=== PATIENT | female | born 1950 | race Caucasian/White ===

== ENCOUNTER 2022-03-05 07:17 | Observation (INO) ==
--- NOTE | 2022-01-25 10:40 | PAT Medication Instructions ---
Medication Instructions Date of Service January 25, 2022 Home Medications albuterol sulfate 90 mcg/actuation aerosol inhaler 2 puff inhalation QID PRN Shortness Of Breath Or Wheezing alendronate 70 mg tablet 70 mg PO UD aspirin 81 mg tablet 81 mg PO QAM atorvastatin 20 mg tablet 20 mg PO QAM fluticasone 500 mcg-salmeterol 50 mcg/dose blistr powdr for inhalation (Advair Diskus) 1 inh inhalation BID PRN Shortness Of Breath Or Wheezing losartan 50 mg tablet 50 mg PO BID magnesium oxide 400 mg (241.3 mg magnesium) tablet 400 mg PO QPM pramipexole 0.125 mg tablet 0.125 mg PO TID Continue as directed alendronate 70 mg tablet 70 mg PO UD ASK your prescriber and surgeon aspirin 81 mg tablet 81 mg PO QAM DO NOT take the morning of surgery losartan 50 mg tablet 50 mg PO BID Take morning of surgery With a small sip of water, OTHERWISE NOTHING TO EAT OR DRINK AFTER MIDNIGHT: albuterol sulfate 90 mcg/actuation aerosol inhaler 2 puff inhalation QID PRN Shortness Of Breath Or Wheezing (use if needed; please bring rescue inhaler with you to hospital day of surgery if possible) atorvastatin 20 mg tablet 20 mg PO QAM fluticasone 500 mcg-salmeterol 50 mcg/dose blistr powdr for inhalation (Advair Diskus) 1 inh inhalation BID PRN Shortness Of Breath Or Wheezing (if needed) pramipexole 0.125 mg tablet 0.125 mg PO TID Take evening before surgery albuterol sulfate 90 mcg/actuation aerosol inhaler 2 puff inhalation QID PRN Shortness Of Breath Or Wheezing (if needed) fluticasone 500 mcg-salmeterol 50 mcg/dose blistr powdr for inhalation (Advair Diskus) 1 inh inhalation BID PRN Shortness Of Breath Or Wheezing (if needed) losartan 50 mg tablet 50 mg PO BID magnesium oxide 400 mg (241.3 mg magnesium) tablet 400 mg PO QPM pramipexole 0.125 mg tablet 0.125 mg PO TID Other Notes If you have any questions please call us at [phone] or [phone] or [phone] or [phone]
--- NOTE | 2022-01-28 10:09 | Anesthesiology Consultation ---
Date of Service January 28, 2022 Assessment & Plan (1) Encounter for pre-operative examination: - COVID screening: Per assessment on 01/28: No known COVID-19 positive contacts or current COVID-19 related symptoms. Travel screen negative. Patient vaccinated. At surgeon discretion if preop Covid testing being done. - Outpatient joint pathway: Per OR booking comments, plan for outpatient joint program. Patient seen at [facility] 01/28. Case reviewed with Dr. Shoemaker. Patient is not an acceptable candidate to proceed as possible outpatient joint pathway. Patient/June at surgeon's office aware- June says they will switch to inpatient pathway. Chart Review Chart Review: Acceptable Risk for Surgery and Patient seen in Pre Admission Testing Teaching & Discussion Pre-Anesthesia Teaching/Discussion Notes: Instructed NPO after midnight before surgery,except medications with 15 cc of water. Medication instructions provided according to the [facility] guidelines. History Surgery Operation Date: 03/05/22 10:20 Proposed Procedures p Right Reverse Total Shoulder Arthroplasty - Charles Garcia DO Height/Weight Height: 5 ft 6 in Weight: 136.3 kg Allergies Allergy/AdvReac Type Severity Reaction Status Date / Time morphine Allergy Intermediate SOB Verified 01/25/22 09:25 Medications Home Medications Medication Instructions Recorded Confirmed Last Taken albuterol sulfate 90 mcg/actuation 2 puff inhalation QID PRN 01/25/22 01/25/22 Unknown aerosol inhaler Shortness Of Breath Or Wheezing alendronate 70 mg tablet 70 mg PO UD 01/25/22 01/25/22 Unknown aspirin 81 mg tablet 81 mg PO QAM 01/25/22 01/25/22 Unknown atorvastatin 20 mg tablet 20 mg PO QAM 01/25/22 01/25/22 Unknown fluticasone 500 mcg-salmeterol 50 1 inh inhalation BID PRN Shortness 01/25/22 01/25/22 Unknown mcg/dose blistr powdr for Of Breath Or Wheezing inhalation (Advair Diskus) losartan 50 mg tablet 50 mg PO BID 01/25/22 01/25/22 Unknown magnesium oxide 400 mg (241.3 mg 400 mg PO QPM 01/25/22 01/25/22 Unknown magnesium) tablet pramipexole 0.125 mg tablet 0.125 mg PO TID 01/25/22 01/25/22 Unknown Past Medical History Medical History Asthma Stable Hx of thyroid nodule s/p excision several years ago Hyperlipidemia Hypertension Morbid obesity Peripheral neuropathy Left foot Restless leg syndrome Sleep apnea CPAP (compliant) Exercise / Class Metabolic Activity III < 4 Walking/Shop/Light housework (uses cane/walker PRN) Past Family History Family History Other No family history of adverse response to anesthesia Past Surgical History Surgical History History of arthroscopy of right shoulder Hx of colonoscopy Hx of fracture of left hip ORIF Hx of skin graft Right thigh Hx of total knee arthroplasty B/L Past Anesthesia History No Hx of Anesthesia Complications and No Family Hx of Anesthesia Complications History of PONV No Hx of PONV and No Hx of Motion Sickness Social History Smoking Status: Never smoker Do You Dip or Chew Tobacco: No Hx Alcohol Use: No Hx Substance Use: No substance use type: does not use Review of Systems Patient denies chest pain, shortness of breath, fever, chills, cough, wheezing, palpitations. Physical Exam Vital Signs VITALS BP 147/81 P 70 TEMP 98.0 SP02 97%RA RESP 20 PHYSICAL Full cervical extension range of motion. Full TMJ range of motion. TMD 3.5 finger breaths Mallampati Score 3 Dentition: full upper, partial lower Lungs: clear throughout to auscultation Cardiac: regular rate and rhythm, no murmurs noted Spine: normal Carotid arteries: negative bruit Extremities: no edema Lab Results Anesthesia Preop Results Results Anesthesia Widget: WBC 6.94 K/ul (4.8-10.8) 01/28/22 Hgb 12.9 g/dl (12.0-16.0) 01/28/22 Hct 39.7 % (34.1-44.9) 01/28/22 Plt 227 K/uL (130-400) 01/28/22 Na 140 mmol/L (136-145) 01/28/22 K 4.7 mmol/L (3.5-5.1) 01/28/22 Cl 106 mmol/L (98-107) 01/28/22 CO2 27 mmol/L (21-32) 01/28/22 BUN 16 mg/dl (6-23) 01/28/22 Creat 0.72 mg/dl (0.6-1.2) 01/28/22 Glucose Level 95 mg/dl (70-99(Fasting)) 01/28/22 PT 10.4 Seconds (9.0-12.0) 01/28/22 PTT 26.5 Seconds (21.0-31.0) 01/28/22 INR 1.0 (0.9-1.1) 01/28/22 Blood Type B Positive 01/28/22 Antibody Screen NEGATIVE 01/28/22 Testing Electrocardiogram Date: 01/28/22 NSR at 60bpm. Normal ECG. Chest X-Ray Date: 01/28/22 FINDINGS: PA and lateral chest radiographs are obtained. No prior studies are available for comparison at the time of dictation. The cardiomediastinal silhouette is top normal for projection noting atherosclerotic calcification of the thoracic aorta. Linear scarring/atelectasis is seen in the left midlung. The lungs and pleural spaces are otherwise clear. There is no pneumothorax. The skeletal structures are osteopenic. The bony thorax appears intact. Advanced arthritic change is seen in the shoulders. Spondylotic change is noted in the spine. IMPRESSION: No active disease in the chest. COVID-19 Risk Screen Screening Information COVID-19 Screen Date: 01/28/22 Exposure 21 Days Family/Household +COVID Last 21 Days: No Exposure 10 Days Any COVID Exposure Last 10 Days: No Symptoms Last 10 Days Experienced COVID Sx Last 10 Days: No + COVID 0-90 Days COVID + in Last 0-90 Days: No
--- NOTE | 2022-03-04 09:32 | History & Physical Report ---
Date of Service March 04, 2022 Assessment & Plan (1) Osteoarthritis of right shoulder: We will proceed with a right reverse shoulder arthroplasty. Postoperatively she will be placed in a sling and kept overnight in the hospital for postoperative medical management. She plans to use energy physical therapy upon discharge. History of Present Illness Chief Complaint: Chronic cuff tear arthropathy of the right shoulder. Primary Care Provider: NO PCP Lisette is a pleasant 71-year-old female who has been dealing with chronic worsening right shoulder pain. This has been going on for years. Over the past year, it has become more debilitating. She has seen an orthopedist down in [place]. She has had multiple injections in her shoulder with minimal rel ief. She does have a history of two rotator cuff repairs done by Dr. Peck about 5 to 7 years ago. Unfortunately, she is really struggling with the shoulder. She is unable to get her hand to her head. She has constant pain. She has trouble sleeping at night. After failing conservative treatment, she has elected proceed with a right reverse shoulder arthroplasty. Allergies Allergy/AdvReac Type Severity Reaction Status Date / Time morphine Allergy Intermediate SOB Verified 01/25/22 09:25 Home Medications Medication Instructions Recorded Confirmed Type albuterol sulfate 90 mcg/actuation 2 puff inhalation QID PRN 01/25/22 01/25/22 History aerosol inhaler Shortness Of Breath Or Wheezing alendronate 70 mg tablet 70 mg PO UD 01/25/22 01/25/22 History aspirin 81 mg tablet 81 mg PO QAM 01/25/22 01/25/22 History atorvastatin 20 mg tablet 20 mg PO QAM 01/25/22 01/25/22 History fluticasone 500 mcg-salmeterol 50 1 inh inhalation BID PRN Shortness 01/25/22 01/25/22 History mcg/dose blistr powdr for Of Breath Or Wheezing inhalation (Advair Diskus) losartan 50 mg tablet 50 mg PO BID 01/25/22 01/25/22 History magnesium oxide 400 mg (241.3 mg 400 mg PO QPM 01/25/22 01/25/22 History magnesium) tablet pramipexole 0.125 mg tablet 0.125 mg PO TID 01/25/22 01/25/22 History Past Med/Surg History Medical History Asthma Stable Hx of thyroid nodule s/p excision several years ago Hyperlipidemia Hypertension Morbid obesity Peripheral neuropathy Left foot Restless leg syndrome Sleep apnea CPAP (compliant) Surgical History History of arthroscopy of right shoulder Hx of colonoscopy Hx of fracture of left hip ORIF Hx of skin graft Right thigh Hx of total knee arthroplasty B/L Family History Other No family history of adverse response to anesthesia Social History Smoking Status: Never smoker Second Hand Exposure: No; Hx Alcohol Use: No Hx Substance Use: No Preferred Language: [place] Communication Ability: Effective Surveyor Helper Required: No Beliefs That Will Affect Care: None Current Living Situation: Alone Current Living Situation Comment: boyfriend stays w/ her at night Feels Safe at Home: Yes Assistive Devices: Cane and Walker Review of Systems All systems reviewed & are unremarkable except as noted in HPI & below. Physical Exam On physical examination of right shoulder, she has about 70 degrees forward elevation and 70 degrees of abduction. She has crepitus with range of motion. Significant pain in her shoulder.. Constitutional WD/WN, vitals as above Eyes PERRL, conjunctivae normal, anicteric sclerae ENMT external ear and nose normal, oropharynx normal Neck trachea midline, no thyromegaly Respiratory normal respiratory effort, lungs clear to auscultation Cardiovascular RRR, no murmur, no edema Gastrointestinal (Abdomen) normal bowel sounds, soft, nontender, no hepatosplenomegaly Skin no rashes, warm and dry Psychiatric A+Ox3, euthymic affect Results & Data Results & Data Laboratory Results . Diagnostic Findings X-rays of the right shoulder show advanced osteoarthritis with joint space narrowing, osteophyte formation, and [id number] articulation. PG Care Time/CCT Total # of Minutes Spent Total Time Spent with Patient: Total time spent is greater than 50% in coordination of care (as documented) at patient's floor/unit and/or counseling patient: Coding Level of Care Code None Diagnoses Osteoarthritis of right shoulder M19.011
[~2022-03-05 07:17] MED LIST: ACETAMINOPHEN 500 MG TAB PO SCH; BUPIVACAINE 0.5 % 5 MG/1 ML PF 10ML VIAL ONE; FAMOTIDINE 20 MG TAB PO SCH; GABAPENTIN 300 MG CAP PO SCH; LR 15ML/HR IV SCH; LR 60ML/HR IV SCH; ORTHO JOINT MIX INFIL SCH; SUGAMMADEX SODIUM 200 MG/2 ML VIAL IV ONE; TRANEXAMIC ACID 1,000 MG **IV Intra-op IV SCH; TRANEXAMIC ACID 1,000 MG **IV Pre-op IV SCH; dexAMETHasone 4 MG TAB PO SCH
--- NOTE | 2022-03-05 09:22 | History & Physical Bridge Note ---
Date of Service March 05, 2022 History & Physical Bridge Note I have examined the patient, reviewed the History & Physical and in the interval since the performance of the History & Physical I have noted the following changes of clinical significance: no changes noted
[2022-03-05] MEDS ORDERED: PROPOFOL IV EMULSION 10 MG/ML 20 ML VIAL IV ONE (09:52)
[2022-03-05] MEDS ORDERED: fentaNYL citrate 100 MCG/2 ML VIAL ONE (09:52)
[2022-03-05] MEDS ORDERED: ONDANSETRON INJ 2 MG/ML 2 ML VIAL ONE (09:52)
[2022-03-05] MEDS ORDERED: ROCURONIUM BROMIDE 10 MG/ML 5 ML VIAL IV ONE (09:52)
[2022-03-05] MEDS ORDERED: LIDOCAINE 2% MPF LOCAL 5 ML VIAL INFIL ONE (09:52)
[2022-03-05] MEDS ORDERED: DEXAMETHASONE SOD INJ 4 MG/ML VIAL ONE (09:52)
[2022-03-05] MEDS ORDERED: ORTHO JOINT ANESTHETIC ONE (10:27)
[2022-03-05] MEDS ORDERED: fentaNYL citrate 100 MCG/2 ML VIAL IV PRN (12:26)
[2022-03-05] MEDS ORDERED: ONDANSETRON INJ 2 MG/ML 2 ML VIAL IV PRN ×2 (12:26→15:12)
[2022-03-05] MEDS ORDERED: ePHEDrine sulfate 50 MG/ML AMP IV PRN (12:26)
[2022-03-05] MEDS ORDERED: ATROPINE SULFATE 0.1 MG/ML 10ML SYR IV PRN (12:26)
--- NOTE | 2022-03-05 12:42 | Operative Report ---
PG Post Operative Report Pre & Post Diagnosis Operation Date: 03/05/22 10:30 Pre-Op Diagnosis: Degenerative Joint Disease Right Shoulder With tendinopathy of long head of the biceps tendon Post-Op Diagnosis: Degenerative Joint Disease Right Shoulder With tendinopathy of the long head of the biceps tendon I identified the patient and participated in the time-out.: Yes Procedure Operation Date: 03/05/22 10:30 Actual Procedures p Right Reverse Total Shoulder Arthroplasty(Right) With open biceps tenodesis as a distinct and separate procedure (modifier 59) - Charles Garcia DO Surgeon Charles Garcia DO Weigh Machine Operator Charles Rogers PA-C Estimated Blood Loss 200 Findings Consistent with Post-Op Diagnosis Specimens Right humeral head Description of Procedure A CPT code modifier 59: The long head of the biceps tendon was enlarged and inflamed consistent with tendinopathy. A tenodesis was opted. This was a separate and distinct portion of the procedure. For these reasons, a CPT code modifier 59 will be added to this case. Implants used: I used a [employer] Comprehensive reverse total shoulder arthroplasty system with a size 11 press fit micro humeral stem, a +6 offset humeral tray and a standard humeral bearing, a 25mm large augment baseplate with a 6.5 mm central screw and three locking screws, and a size 40 eccentric glenosphere. Lisette arrived at [facility] for the above procedure. She was seen in the preoperative holding area and the operative extremity was identified and signed. She was given a preoperative antibiotic, TXA, and an interscalene nerve block. She was taken back to the operating room, laid on table in supine position, and put under general anesthesia. She was then put into the beachchair position. The shoulder was then prepped and draped in sterile fashion. A timeout was done and the patient and the operative extremity was properly identified. A deltopectoral approach was used. Dissection was taken down through the fascia and the deltoid was retracted laterally and the conjoined tendon was retracted medially. The anterior shoulder was exposed. The biceps groove was opened up and the biceps tendon was examined extensively. The biceps tendon demonstrated enlargement and inflammatory changes consistent with longstanding inflammation in the context of osteoarthritis and cuff arthropathy. The long head of the biceps tendon was then tenodesed to the upper border of the pectoralis major. This was a separate and distinct portion of the procedure. The subscapularis was then directly released off the lesser tuberosity with a peel technique. The inferior capsule was released and the humeral head was dislocated. A canal finding reamer was sent down the center of the humeral canal. Sequential reaming up to a size 12 reamer was done. Off that reamer, a proximal humeral resection guide was placed. The proximal humerus was resected at 135 of inclination and 25 of retroversion. Osteophytes were then removed and the glenoid was exposed. Time was spent doing a complete capsular and labral release. A [employer] Signature One guide was then attached onto the anterior rim of the glenoid. A 3.2 mm Steinmann pin was then placed in the reverse total shoulder arthroplasty hole. The glenoid baseplate was then reamed. The final size 25mm large augment baseplate was then impacted in the place. A 6.5 mm central screw was then placed followed by superior and inferior locking screws. A 40mm eccentric glenosphere was then impacted into place. Surrounding soft tissues were then injected with 100 cc an orthopedic pain control cocktail. The proximal humerus was then exposed. Sequential broaching of the humerus up to a size 11 broach was done. Off that broach a +6 offset humeral tray was trialed. The shoulder was then reduced, brought through a full range of motion, and felt to be stable. The shoulder was then dislocated and the broach was removed. The final size 11 micro press-fit humeral stem was then impacted into place. A standard humeral bearing was then snapped onto a +6 offset humeral tray. The humeral tray was then impacted onto the humeral stem. The shoulder was once again reduced, brought through a full range of motion, and felt to be stable. The subscapularis was then tenodesed back to the lesser tuberosity with transosseous FiberWire sutures and side to side sutures with the arm in 45 of external rotation. A dilute betadyne lavage was then done for 3 minutes. The joint was then irrigated with normal saline solution. Hemostasis was obtained. The interval was closed with 2-0 Vicryl suture. The skin was then closed with 2-0 Vicryl and angie. A Silverlon dressing was placed and the arm was rested in a regular arm sling. She was then extubated and transferred to a hospital bed. She taken to the postanesthesia care unit in stable condition. She tolerated the procedure well. Charles Rogers PA-C, was present for the entire procedure. He was critical for patient positioning, prepping, draping, retraction exposure, wound closure and application of sterile dressing. I attest to the content of the Intraoperative Record and any orders documented therein. Any exceptions are noted below.
--- NOTE | 2022-03-05 12:47 | Anesthesiology Progress Note ---
Date of Service March 05, 2022 Anesthesia Post Procedure Vital Signs Vital Signs: Temp Pulse Pulse Resp BP BP Pulse Ox 03/05/22 12:35 75 18 149/77 H 97 03/05/22 12:25 77 18 151/75 H 95 03/05/22 12:18 97.2 F L 76 23 150/79 H 95 03/05/22 08:24 98.1 F 74 20 163/71 H 96 O2 Del Method O2 Flow Rate 03/05/22 12:35 Oxymask 5 03/05/22 12:25 Oxymask 9 03/05/22 12:18 Oxymask 9 03/05/22 08:24 Room Air Pain Intensity Right Shoulder: Pain Intensity: 10 Transfer of Care Handoff Completed per policy Notes Mental Status: alert / awake / arousable and participated in evaluation Patient Amnestic to Procedure: Yes Nausea / Vomiting: adequately controlled Pain: adequately controlled Airway Patency, RR, SpO2: stable & adequate BP & HR: stable & adequate Hydration State: stable & adequate Anesthetic Complications: no major complications apparent and Pt Satisfied with anesthetic care
--- NOTE | 2022-03-05 13:02 | XRay Report ---
XR shoulder RT min 2V routine CLINICAL HISTORY: Post shoulder surgery COMPARISON: Right shoulder radiograph December 16, 2021. Right shoulder CT January 28, 2022. FINDINGS: Alignment of the reverse total right shoulder arthroplasty is anatomic. There is no peripr osthetic fracture or unexpected radiopaque foreign body. There are skin angie. Linear right basilar opacity favors atelectasis. IMPRESSION: Expected findings following total right shoulder arthroplasty. ACT 112: Negative or not required by law. Electronically signed by: Carter Rowland M.D. 03/05/2022 1:00 PM
[2022-03-05] MEDS ORDERED: METOCLOPRAMIDE HCL INJ 5 MG/ML 2 ML VIAL IV PRN (15:12)
[2022-03-05] MEDS ORDERED: MAGNESIUM HYDROXIDE SUSP 30 ML UDC PO PRN (15:12)
[2022-03-05] MEDS ORDERED: ALBUTEROL HFA 8 GM INHALER INH PRN (15:12)
[2022-03-05] MEDS ORDERED: HYDROmorphone INJ 0.5 MG/0.5 ML SYR IV PRN (15:12)
[2022-03-05] MEDS ORDERED: bisacodyL 10 MG SUPP PR PRN (15:12)
[2022-03-05] MEDS ORDERED: NALOXONE HCL 0.4 MG/1 ML VIAL/CARP IV PRN (15:12)
[2022-03-05] MEDS: KETOROLAC TROMETHAMINE 15 MG/ML VIAL IV SCH ×2 (16:14→20:00)
[2022-03-05] MEDS: ACETAMINOPHEN 500 MG TAB PO SCH ×2 (16:15→20:00)
[2022-03-05] MEDS: PRAMIPEXOLE DIHYDROCHLO 0.25 MG TAB PO SCH ×2 (16:15→19:59)
[2022-03-05] MEDS: SODIUM CHLORIDE 0.9% 1000ML 1,000 ML IV SCH (16:23)
[2022-03-05] MEDS: ceFAZolin 2000MG 2,000 MG/15 ML SYR IV SCH (17:51)
[2022-03-05] MEDS: DOCUSATE SODIUM 100 MG CAP PO SCH (19:58)
[2022-03-05] MEDS: LOSARTAN POTASSIUM 50 MG TAB PO SCH (19:58)
[2022-03-05] MEDS: SENNA 8.6 MG TAB PO SCH (19:59)
[2022-03-05] MEDS: MAGNESIUM OXIDE 400 MG TAB PO SCH (19:59)
[2022-03-06] MEDS: ceFAZolin 2000MG 2,000 MG/15 ML SYR IV SCH (02:50)
[2022-03-06] MEDS: KETOROLAC TROMETHAMINE 15 MG/ML VIAL IV SCH ×4 (02:50→20:11)
[2022-03-06] MEDS: SODIUM CHLORIDE 0.9% 1000ML 1,000 ML IV SCH (03:21)
[2022-03-06] MEDS: ACETAMINOPHEN 500 MG TAB PO SCH ×3 (05:06→20:10)
[2022-03-06] MEDS: FLUTICASONE/VILANTEROL 200/25MCG 14 PUFFS/INHALER INH SCH (07:15)
[2022-03-06] MEDS: MULTIVITAMIN TAB PO SCH (07:16)
[2022-03-06] MEDS: PRAMIPEXOLE DIHYDROCHLO 0.25 MG TAB PO SCH ×3 (07:16→20:10)
[2022-03-06] MEDS: ASPIRIN 81 MG ECTAB PO SCH (07:16)
[2022-03-06] MEDS: LOSARTAN POTASSIUM 50 MG TAB PO SCH ×2 (07:17→20:10)
[2022-03-06] MEDS: DOCUSATE SODIUM 100 MG CAP PO SCH ×2 (07:17→20:10)
[2022-03-06] MEDS: ATORVASTATIN 20 MG TAB PO SCH (07:17)
--- NOTE | 2022-03-06 08:24 | Orthopedic Progress Note ---
Date of Service March 06, 2022 Assessment & Plan (1) Status post reverse total replacement of right shoulder: Overall she is doing very well. She is having much pain in the right shoulder. She will be seen by physical therapy today for ambulation and range of motion exercises. As long as she does well with physical therapy and her saturations remain above 92% on room air, she can be discharged home. Otherwise, we will keep her until tomorrow. She will then follow-up with orthopedics in 2 weeks. Noemi Knox was seen and examined at bedside this morning. Overall she is doing very well. She is not having any pain in the right shoulder. She was feeling a little short of breath overnight when she was getting up out of bed. Her oxygen saturations have remained above 92%. She has no complaints this morning.. Review of Systems All systems reviewed & are unremarkable except as noted in HPI & below. Physical Exam On physical examination of the right shoulder, the dressing is clean and dry. She is having a little bit of difficulty with her right arm sling given the size of her arm.. Results & Data Results & Data Laboratory Results . Diagnostic Findings Postoperative x-rays of the right shoulder show the prosthesis to be in anatomic alignment without any evidence of fracture, desiccation, or loosening. PG Care Time/CCT Total # of Minutes Spent Total Time Spent with Patient: Total time spent is greater than 50% in coordination of care (as documented) at patient's floor/unit and/or counseling patient: Coding Level of Care Code 70114 Post Operative Follow-Up Diagnoses Status post reverse total replacement of right shoulder Z96.611
--- NOTE | 2022-03-06 16:50 | Hospitalist Consultation ---
Date of Consultation March 06, 2022 Assessment & Plan (1) Dyspnea: Patient reportedly was dyspneic and hypoxemic in the room with ambulation. When I evaluate the patient she was 90% on room air. Review of chest x-ray shows elevated right hemidiaphragm which is new from old this may be due to her right shoulder nerve block. This would limit her functional capacity with exertion and likely may relate to her dyspnea, to be expected if this was the case that this would wear off and if she would improve with time a two-step is ordered for tomorrow morning Patient will continue her typical inhaled medications, Advair with as needed albuterol, without any other intervention recommended (2) Hypertension: Patient is maintained on losartan, she is typically on secondary risk prevention with aspirin which is held in the postoperative period (3) Morbid obesity: Her morbid obesity likely makes her respiratory effort increase she does wear her CPAP and is compliant I did reinforce the fact that she should wear that even when taking a nap in the hospital (4) Status post reverse total replacement of right shoulder: Status post from Dr. Garcia 03/05/2022 At the end of the consultation after orders were written and the patient was examined she disclosed to me that she just changed primary care and now follows with primary care Marla History of Present Illness Attending Physician: Charles Garcia DO History of Present Illness 72-year-old female who underwent right reverse total shoulder arthroplasty on 03/05/2022. Patient has morbid obesity with BMI of 49. Patient has chronic lung disease taking Advair inhaler as needed albuterol. Patient has significant sleep apnea and uses CPAP. Patient was found to be cleared of breath with ambulation early this morning. This continued throughout the day. Physical therapy upon evaluation did check an oximeter report and found her to be in the mid 80s where she typically is on room air without supplementation of her oxygen. This continued throughout the afternoon the patient was found to be hypoxemic upon walking to the bathroom by the nurse she requested the placed back on her CPAP her oxygen sats returned after CPAP was placed. Medical consultation was asked due to the dyspnea and hypoxemia with ambulation. Currently pending our serologies and portable chest x-ray. Patient did not receive any opiates today she is not lethargic or sedate Allergies Allergy/AdvReac Type Severity Reaction Status Date / Time morphine Allergy Intermediate SOB Verified 03/05/22 08:18 Home Medications Medication Instructions Recorded Confirmed Type albuterol sulfate 90 mcg/actuation 2 puff inhalation QID PRN 01/25/22 03/05/22 History aerosol inhaler (ProAir HFA) Shortness Of Breath Or Wheezing alendronate 70 mg tablet (Fosamax) 70 mg PO UD 01/25/22 03/05/22 History aspirin 81 mg tablet 81 mg PO QAM 01/25/22 03/05/22 History atorvastatin 20 mg tablet 20 mg PO QAM 01/25/22 03/05/22 History fluticasone 500 mcg-salmeterol 50 1 inh inhalation BID PRN Shortness 01/25/22 03/05/22 History mcg/dose blistr powdr for Of Breath Or Wheezing inhalation (Advair Diskus) losartan 50 mg tablet 50 mg PO BID 01/25/22 03/05/22 History magnesium oxide 400 mg (241.3 mg 400 mg PO QPM 01/25/22 03/05/22 History magnesium) tablet pramipexole 0.125 mg tablet 0.125 mg PO TID 01/25/22 03/05/22 History (Mirapex) oxycodone-acetaminophen 5 mg-325 1 tab PO Q6H PRN pain #30 tabs 03/06/22 Rx mg tablet Patient History Medical History (Updated 03/06/22 @ 16:48 by Juanito Rodriguez MD) Asthma Stable Hx of thyroid nodule s/p excision several years ago Hyperlipidemia Hypertension Morbid obesity Peripheral neuropathy Left foot Restless leg syndrome Sleep apnea CPAP (compliant) Surgical History (Updated 03/05/22 @ 12:42 by Charles Garcia DO) History of arthroscopy of right shoulder Hx of colonoscopy Hx of fracture of left hip ORIF Hx of skin graft Right thigh Hx of total knee arthroplasty B/L Family History Other No family history of adverse response to anesthesia Social History Smoking Status: Never smoker Second Hand Exposure: No; Do You Dip or Chew Tobacco: No; Tobacco Cessation Education Requested by Patient: No Hx Alcohol Use: No Hx Substance Use: No Preferred Language: Vietnamese Communication Ability: Effective Pig Caster Required: No Beliefs That Will Affect Care: None Current Living Situation: Alone Current Living Situation Comment: boyfriend stays w/ her at night Other Information That Helps Us Care for You: No Feels Safe at Home: Yes Safety Concerns: Feels Safe At This Time Assistive Devices: Cane and Walker Review of Systems Review of Systems: Mild distress and fatigue no headache, no visual changes no speech or swallowing issues no chest pain, pressure or palpitations no shortness of breath at rest, no cough or wheezes Patient recollects a significant dyspnea with exertion but she felt she was "rushing around because she had go to the bathroom really bad. no abdominal pain, nausea or vomiting, diarrhea or constipation no dysuria, hematuria or frequency Shoulder pain is well controlled without opiates no back pain, CVA tenderness or radicular pain no bruising, bleeding or rashes no focal signs of weakness or numbness or altered sensation no complaints of anxiety or depression.. Physical Exam Physical Exam: The patient appeared well nourished and normally developed. Vital signs as documented. Head exam is normocephalic atraumatic Neck is without JVD, thyromegaly, or carotid bruits. Lungs are clear to auscultation, no focal loss of breath sounds Cardiac exam, Rhythm is regular.. No murmurs, rubs or gallops. Abdominal exam reveals normal bowel sounds, soft non tender, no masses Extremities right shoulder sling is in place Neurologic exam is alert and oriented, no focal loss of strength or sensation good distal sensation and strength to her hand able to adduct her thumb Skin is without bruises or rashes Psychologically is without concerns for anxiety or depression.. Results & Data Results & Data ([facility]) Vital Signs (Past 12 Hours) Vital Signs Temp Pulse Resp BP Pulse Ox O2 Del Method 03/06/22 15:47 94 Room Air 03/06/22 15:47 98.1 F 89 16 149/79 H 100 Room Air 03/06/22 14:50 94 03/06/22 14:10 94 Room Air 03/06/22 09:53 78 93 Room Air 03/06/22 07:32 CPAP 03/06/22 07:25 97.9 F 66 18 144/83 H 95 Room Air PG Care Time/CCT Total # of Minutes Spent Total Time Spent with Patient: Total time spent is greater than 50% in coordination of care (as documented) at patient's floor/unit and/or counseling patient: Coding Level of Care Code 73778 Inpt Consult Level 4 Diagnoses Dyspnea R06.00 Hypertension I10 Morbid obesity E66.01 Status post reverse total replacement of right shoulder Z96.611
[2022-03-06 17:10] LABS: BUN Creatinine Ratio 27.5 (10-20); Calcium 8.6 mg/dl (8.5-10.1); Creatinine Clr Calc Pharmacy 70.5 ml/min; Est GFR (African American) 63.2 ml/min; Est GFR (Non-African American) 54.5 ml/min; Potassium 4.6 mmol/L (3.5-5.1)
[2022-03-06 17:11] LABS: Troponin I High Sensitivity 13.5 pg/ml (0-14)
--- NOTE | 2022-03-06 17:11 | XRay Report ---
SINGLE VIEW CHEST CLINICAL HISTORY: Dyspnea. FINDINGS: 2 AP, portable, upright chest radiographs are compared to study dated 01/28/2022. The heart is enlarged noting atherosclerotic calcification of the thoracic aorta. The pulmonary vasculature is noncongested. Chronic interstitial thickening is similar to previous, as is elevation of the right h emidiaphragm. There is bibasilar scarring/atelectasis. No airspace consolidation or large pleural eff usion is identified. No pneumothorax is seen. The skeletal structures are osteopenic. The bony thorax is grossly intact. A right shoulder arthroplasty is new from previous. Skin clips, soft tissue edema , and subcutaneous gas overlying the right shoulder are expected postoperative changes. Arthritic mustapha nges seen in the left shoulder. Degenerative change and scoliosis is noted in the spine. IMPRESSION: Cardiomegaly with no acute cardiopulmonary abnormality. ACT 112: Negative or not required by law. Electronically signed by: Lazaro Ramos M.D. 03/06/2022 5:09 PM
[2022-03-06 17:36] LABS: Basophils # (auto) 0.03 K/uL (0-0.2); Basophils % (auto) 0.2 %; Hematocrit (blood only) 34.2 % (34.1-44.9); Immature Granulocytes # (auto) 0.07 K/uL (0.00-0.02); Immature Granulocytes % (auto) 0.4 %; Lymphocytes # (auto) 1.07 K/uL (1.2-3.4); Lymphocytes % (auto) 6.6 %; Mean Corpuscular Hemoglobin 27.6 pg (25.0-34.0); Mean Corpuscular Hgb Conc 32.2 g/dL (32.0-36.0); Mean Corpuscular Volume 85.9 fL (80.0-100.0); Mean Platelet Volume 11.8 fL (9.4-12.3); Monocytes # (auto) 1.15 K/uL (0.24-0.82); Monocytes % (auto) 7.1 %; Neutrophils # (auto) 13.86 K/uL (1.4-6.5); Neutrophils % (auto) 85.7 %; Platelet Count 214 K/uL (130-400); RDW Coefficient of Variation 14.1 % (11.5-14.5); RDW Standard Deviation 43.8 fL (36.4-46.3); Red Blood Count 3.98 M/uL (3.93-5.22); White Blood Count 16.18 K/ul (4.8-10.8)
[2022-03-06] MEDS: SENNA 8.6 MG TAB PO SCH (20:10)
[2022-03-06] MEDS: MAGNESIUM OXIDE 400 MG TAB PO SCH (20:10)
[2022-03-07] MEDS: ACETAMINOPHEN 500 MG TAB PO SCH ×3 (05:02→20:47)
[2022-03-07] MEDS: KETOROLAC TROMETHAMINE 15 MG/ML VIAL IV SCH ×2 (05:02→14:22)
[2022-03-07] MEDS ORDERED: ALENDRONATE SODIUM 70 MG TAB PO SCH (07:00)
[2022-03-07] MEDS: ATORVASTATIN 20 MG TAB PO SCH (07:52)
[2022-03-07] MEDS: ASPIRIN 81 MG ECTAB PO SCH (07:52)
[2022-03-07] MEDS: MULTIVITAMIN TAB PO SCH (07:52)
[2022-03-07] MEDS: DOCUSATE SODIUM 100 MG CAP PO SCH ×2 (07:53→20:47)
[2022-03-07] MEDS: PRAMIPEXOLE DIHYDROCHLO 0.25 MG TAB PO SCH ×3 (07:53→20:46)
[2022-03-07] MEDS: LOSARTAN POTASSIUM 50 MG TAB PO SCH ×2 (07:53→20:47)
[2022-03-07] MEDS: FLUTICASONE/VILANTEROL 200/25MCG 14 PUFFS/INHALER INH SCH (07:54)
--- NOTE | 2022-03-07 08:46 | Orthopedic Progress Note ---
Date of Service March 07, 2022 Assessment & Plan (1) Status post reverse total replacement of right shoulder: Saturations and symptoms are much more stable today. She is able to be discharged to home care. Subjective She reports pain is well controlled. Sensation is returned to her hand. She feels better breathing. She did have to use her CPAP mask after taking a walk. She feels she can manage this at home. Review of Systems All systems reviewed & are unremarkable except as noted in HPI & below. Physical Exam Right shoulder: The dressing is clean, dry, intact. Motor intact of the hand. Results & Data Results & Data Laboratory Results . Diagnostic Findings . PG Care Time/CCT Total # of Minutes Spent Total Time Spent with Patient: Total time spent is greater than 50% in coordination of care (as documented) at patient's floor/unit and/or counseling patient: Coding Level of Care Code 93679 Post Operative Follow-Up Diagnoses Status post reverse total replacement of right shoulder Z96.611
--- NOTE | 2022-03-07 10:49 | XRay Report ---
XR chest 2V PA/lateral CLINICAL HISTORY: Nerve block - elevated hemidiaphragm TECHNIQUE: 2 views of the chest were obtained. Comparison: Comparison is made to chest radiograph 03/06/2022 FINDINGS: Post surgical changes of right shoulder total arthroplasty are seen. The cardiomediastinal date silho uette is normal. Elevation of the right hemidiaphragm is again seen, although somewhat improved from prior exam. There is associated atelectasis. No evidence of pleural effusion or pneumothorax. IMPRESSION: Redemonstration of right hemidiaphragmatic elevation, somewhat improved from prior exam. Stable cardi omegaly and postsurgical changes about the right shoulder. ACT 112: Negative or not required by law. Electronically signed by: Jimbo Delgado M.D. 03/07/2022 10:47 AM
--- NOTE | 2022-03-07 17:28 | Hospitalist Progress Note ---
Date of Service March 07, 2022 Assessment & Plan (1) Dyspnea: Plan: Patient reportedly was dyspneic and hypoxemic in the room with ambulation. Likely due to elevated right hemidiaphragm which is new from old this may be due to her right shoulder nerve block. This would limit her functional capacity with exertion and likely may relate to her dyspnea, to be expected if this was the case that this would wear off and if she would improve with time a two-step is ordered for tomorrow morning Patient will continue her typical inhaled medications, Advair with as needed albuterol, without any other intervention recommended. Improved today on CXR and with symptoms, but patient can really only ambulate about 12 ft before becoming extremely short of breath. I do feel she would benefit from 24 more hours in the hospital to allow the shoulder block to fully wear off and hopefully have her symptoms of dyspnea on exertion resolve. (2) Hypertension: Plan: Patient is maintained on losartan, she is typically on secondary risk prevention with aspirin which is held in the postoperative period. - BP acceptable today. (3) Morbid obesity: Plan: Her morbid obesity likely makes her respiratory effort increase she does wear her CPAP and is compliant I did reinforce the fact that she should wear that zachary n when taking a nap in the hospital. (4) Status post reverse total replacement of right shoulder: Plan: Status post from Dr. Garcia 03/05/2022 At the end of the consultation after orders were written and the patient was examined she disclosed to me that she just changed primary care and now follows with [facility] PCP. Admission and Anticipated Discharge Date Admission Date: March 05, 2022 Subjective Doing well today. Shoulder feeling ok. Breathing is improved today, but still getting very winded when getting up. Can walk about 12 ft before having to use her CPAP due to her shortness of breath. Physical Exam Constitutional: WD/WN, vitals as above + obese Eyes: EOM intact bilaterally; no conjunctival abnormality ENMT: external ear and nose normal, oropharynx normal Neck: trachea midline, no thyromegaly normal visual inspection Respiratory: normal respiratory effort, lungs clear to auscultation no respiratory distress Cardiovascular: RRR, no murmur, no edema Gastrointestinal (Abdomen): Inspection/Auscultation: abdomen normal to inspection; abdomen not distended Musculoskeletal: no cyanosis or clubbing, extremities motor strength 5/5 Skin: no rashes, warm and dry Neurologic: moves all extremities and awake Psychiatric: Orientation: alert, oriented to person and cooperative Results & Data Results & Data ([facility]) Vital Signs (Past 12 Hours) Vital Signs Temp Pulse Pulse Pulse Pulse Resp Resp 03/07/22 16:24 36.7 C 66 16 03/07/22 07:53 03/07/22 08:27 92 H 78 86 24 03/07/22 07:56 36.4 C L 52 L 16 Resp Resp BP Pulse Ox Pulse Ox Pulse Ox Pulse Ox 03/07/22 16:24 152/74 H 96 03/07/22 07:53 03/07/22 08:27 24 18 91 92 98 03/07/22 07:56 124/71 96 O2 Del Method 03/07/22 16:24 Room Air, CPAP 03/07/22 07:53 CPAP 03/07/22 08:27 03/07/22 07:56 Room Air, CPAP PG Care Time/CCT Total # of Minutes Spent Total Time Spent with Patient: Total time spent is greater than 50% in coordination of care (as documented) at patient's floor/unit and/or counseling patient: Coding Level of Care Code 61608 Subseq Hosp Care Lvl 2 Diagnoses Dyspnea R06.00 Hypertension I10 Morbid obesity E66.01 Status post reverse total replacement of right shoulder Z96.611
[2022-03-07] MEDS: MAGNESIUM OXIDE 400 MG TAB PO SCH (20:47)
[2022-03-07] MEDS: SENNA 8.6 MG TAB PO SCH (20:48)
[2022-03-08] MEDS: ACETAMINOPHEN 500 MG TAB PO SCH ×3 (04:39→20:57)
[2022-03-08] MEDS: PRAMIPEXOLE DIHYDROCHLO 0.25 MG TAB PO SCH ×3 (08:02→20:57)
[2022-03-08] MEDS: MULTIVITAMIN TAB PO SCH (08:03)
[2022-03-08] MEDS: LOSARTAN POTASSIUM 50 MG TAB PO SCH (08:03)
[2022-03-08] MEDS: DOCUSATE SODIUM 100 MG CAP PO SCH ×2 (08:03→20:58)
[2022-03-08] MEDS: ASPIRIN 81 MG ECTAB PO SCH (08:03)
[2022-03-08] MEDS: FLUTICASONE/VILANTEROL 200/25MCG 14 PUFFS/INHALER INH SCH (08:04)
[2022-03-08] MEDS: ATORVASTATIN 20 MG TAB PO SCH (08:04)
--- NOTE | 2022-03-08 08:21 | Hospitalist Progress Note ---
Date of Service March 08, 2022 Assessment & Plan (1) Dyspnea: Plan: Patient reportedly was dyspneic and hypoxemic in the room with ambulation. Likely due to elevated right hemidiaphragm which is new from old this may be due to her right shoulder nerve block. This would limit her functional capacity with exertion and likely may relate to her dyspnea, to be expected if this was the case that this would wear off and if she would improve with time a two-step is ordered for tomorrow morning Patient will continue her typical inhaled medications, Advair with as needed albuterol, without any other intervention recommended. Improved today on CXR and with symptoms, but patient can really only ambulate about 12 ft before becoming extremely short of breath. I do feel she would benefit from 24 more hours in the hospital to allow the shoulder block to fully wear off and hopefully have her symptoms of dyspnea on exertion resolve. 03/08 --> patient evaluated this morning and reports continued improvement in COHEN, but does have some when up/moving quickly. No palpitations. Encouraged use of incentive spirometer - had not been ordered Repeat CXR * 1. No evidence for an elevated right hemidiaphragm. * 2. Right basilar linear densities have improved and favor resolving subsegmental atelectasis. * 3. Postoperative changes again noted within the right shoulder. She does not have any hx of having ECHO performed, however no significant murmur on exam however possibly because of body habitus. She does have cardiomegaly on imaging however. No chest pain. Doesn't have PCP and has been using [facility], doesn't like [facility] and prefers to be established with PCP in [place] if possible. BEVERLY contacted to arrange She also stated she was planning home health therapy. BEVERLY stated was told no needs, but will visit with patient and arrange home health as requested. In follow up with new PCP, would recommend obtaining baseline ECHO outpatient/possible referral to cardiology for consideration stress testing vs other to r/o other causes for SOB which she does get time to time when doing activities quickly as she reports Labs not yet back this morning regarding her potassium, however ELEVATED 5.3 today with some dehydration on exam -- got her AM losartan. WOULD HOLD FOR THIS EVENING/TOMORROW MORNING, and have close repeat labs if not resolved on repeat w/ 250cc NSS bolus. (2) Hypertension: Plan: Patient is maintained on losartan, she is typically on secondary risk prevention with aspirin which is held in the postoperative period. BP stable 128/82 K 5.3 on AM labs when recollected unfortunately. Had already gotten her losartan this morning, not held in operative period. BUN 26/Cr 0.81. Will give 250cc NSS bolus x 1 now and repeat labs but recommending to hold her losartan for tonight, and if planning to continue discharge would hold in the morning and have repeat labs with PCP in next 24 hours to ensure stable. They may need to make adjustments to her BP regimen, as appears K 4.6/4.7 on prior values. If unchanged/still elevated on repeat will give dose valtessa (3) Morbid obesity: Plan: Her morbid obesity likely makes her respiratory effort increase she does wear her CPAP and is compliant I did reinforce the fact that she should wear that even when taking a nap in the hospital. She wore this and reports dose help Also w/ hx COPD, inhalers as previously ordered with advair and albuterol HFA Added incentive spirometer given suspected atelectasis -- on CXR suggestive of resolving such, rec'd to continue incentive spirometer at discharge (4) Status post reverse total replacement of right shoulder: Plan: POD #2 s/p reverse R shoulder Post-op management per primary service Plan Breathing improved w/ time and incentive spirometer added for atelectasis NSS for elevated K on labs, recs to hold losartan/monitor BP at home and have close repeat labs to ensure stable. consider adjusting BP regimen to LINDA/HCTZ to prevent hyperkalemia/kidney damage/renal failure in future Repeat labs this afternoon, if still elevated will give dose Veltassa. CM contacts and arranging for home health per patient request as well as new PCP at [place] office with [facility] given issues w/ [facility] and changing providers recently with poor care reported at [facility] Messaged primary service of concerns and fluids/repeat labs for patient this afternoon but improved can d/c and have losartan held at discharge with close monitoring BP at home and can be discharged as medically stable if repeat labs w/ improvement. Otherwise, would recommend monitoring overnight and we can make adjustments as needed Admission and Anticipated Discharge Date Admission Date: March 05, 2022 Subjective patient evaluated this morning off room air, does have some shortness of breath up and moving around but she says she moves fast and probably over does it. No cough/sputum production. No fever/chills. She has had EKG but never ECHO. Hx COPD. No appreciable murmur on exam but HS are distant, possibly due to body habitus. She notes pain controlled. Notes she has been following [facility] but has terrible experience at [facility] but [place]. Discussed [place] if she would like, she would like assistance arranging. Contacted CM of such. She also notes that she will plan for home health therapy, and that her significant other is 10yr older than her and does a lot for her but that she doesn't want to have to rely on him to take to therapy and is planning home health therapy. CM stated was told no home health, but alerted and will discuss with patient/arrange. Continued use of incentive spirometer at discharge but if breathing continues to improve after lunch will anticipate discharge. Questions/concerns addressed and relayed information to primary service regarding PCP/HH therapy and discussion with CM. Review of Systems Review of Systems: All systems reviewed & are unremarkable except as noted in HPI & below Physical Exam Physical Exam: General: WD/WN obese female sitting up in recliner, NAD, HEENT; head normocephalic, atraumatic, +thick neck, no tracheal dilation Resp: CTAB, faint bibasilar crackles (resolved with cough), no w/r, on room air CV: RRR, quiet heart sounds (possibly due to body habitus), no obvious murmur, rub or gallop, trace LE edema, calves nontender, pulses palpable GI: +obese, +BS, soft/NT : no kothari MSK/Neuro: R shoulder in sling, NVI, fingers mobile/pulses palpable Results & Data Results & Data ([facility]) Vital Signs (Past 12 Hours) Vital Signs Temp Pulse Resp BP Pulse Ox O2 Del Method 03/08/22 07:48 36.5 C 62 16 128/82 97 Room Air, CPAP 03/07/22 20:40 Room Air, CPAP 03/07/22 20:57 36.7 C 62 18 151/81 H 96 Room Air Laboratory Results 03/08/22 03/08/22 03/08/22 Range/Units 11:52 08:49 08:49 WBC 8.09 (4.8-10.8) K/ul RBC 4.44 (3.93-5.22) M/uL Hgb 12.3 (12.0-16.0) g/dl Hct 38.8 (34.1-44.9) % MCV 87.4 (80.0-100.0) fL MCH 27.7 (25.0-34.0) pg MCHC 31.7 L (32.0-36.0) g/dL RDW Std Deviation 45.9 (36.4-46.3) fL RDW Coeff of Blade 14.5 (11.5-14.5) % Plt Count 149 (130-400) K/uL MPV 12.0 (9.4-12.3) fL Sodium 138 (136-145) mmol/L Potassium 5.3 H TNP Chloride 107 (98-107) mmol/L Carbon Dioxide 25 (21-32) mmol/L Anion Gap 6 (3-11) BUN 26 H (6-23) mg/dl Creatinine 0.81 (0.6-1.2) mg/dl Est Cr Clr Drug Dosing 88.8 ml/min Est GFR ( Amer) 83.5 ml/min Est GFR (Non-Af Amer) 72.1 ml/min BUN/Creatinine Ratio 32.1 H (10-20) Glucose 85 (70-99(Fasting)) mg/dl Calcium 8.3 L (8.5-10.1) mg/dl Magnesium 2.7 H (1.7-2.4) mg/dl Diagnostic Findings Chest X-Ray 03/08/22 09:06 XR chest 2V PA/lateral HISTORY: f/u elevation R hemidiaphragm COMPARISON: Chest 02/25/2022. FINDINGS: There is again noted a right total shoulder arthroplasty with overlying skin angie consistent with recent postoperative change. The elevated right hemidiaphragm seen in the prior study has resolved in the interval. Right basilar linear densities have also improved. This favors resolving subsegmental atelectasis. Small linear scarlike densities again noted within the left midlung zone. No new focal lung consolidations. No evidence for pulmonary edema. Thoracic scoliosis again noted. IMPRESSION: 1. No evidence for an elevated right hemidiaphragm. 2. Right basilar linear densities have improved and favor resolving subsegmental atelectasis. 3. Postoperative changes again noted within the right shoulder. ACT 112: Negative or not required by law. Electronically signed by: Mayur Will M.D. 03/08/2022 12:51 PM PG Care Time/CCT Total # of Minutes Spent Total Time Spent with Patient: Total time spent is greater than 50% in coordination of care (as documented) at patient's floor/unit and/or counseling patient: Coding Level of Care Code 69748 Subseq Hosp Care Lvl 3 Diagnoses Dyspnea R06.00 Hypertension I10 Morbid obesity E66.01 Status post reverse total replacement of right shoulder Z96.611
[2022-03-08 09:19] LABS: Hematocrit (blood only) 38.8 % (34.1-44.9); Hemoglobin 12.3 g/dl (12.0-16.0); Mean Corpuscular Hemoglobin 27.7 pg (25.0-34.0); Mean Corpuscular Hgb Conc 31.7 g/dL (32.0-36.0); Mean Corpuscular Volume 87.4 fL (80.0-100.0); Platelet Count 149 K/uL (130-400); RDW Coefficient of Variation 14.5 % (11.5-14.5); RDW Standard Deviation 45.9 fL (36.4-46.3); Red Blood Count 4.44 M/uL (3.93-5.22); White Blood Count 8.09 K/ul (4.8-10.8)
[2022-03-08 10:20] LABS: Anion Gap 6 (3-11); BUN Creatinine Ratio 32.1 (10-20); Blood Urea Nitrogen 26 mg/dl (6-23); Calcium 8.3 mg/dl (8.5-10.1); Carbon Dioxide 25 mmol/L (21-32); Chloride 107 mmol/L (98-107); Creatinine Clr Calc Pharmacy 88.8 ml/min; Est GFR (African American) 83.5 ml/min; Est GFR (Non-African American) 72.1 ml/min; Glucose 85 mg/dl (70-99(Fasting)); Magnesium 2.7 mg/dl (1.7-2.4); Sodium 138 mmol/L (136-145)
--- NOTE | 2022-03-08 10:31 | Orthopedic Progress Note ---
Date of Service March 08, 2022 Assessment & Plan (1) Status post reverse total replacement of right shoulder: She is doing very well with her right shoulder. She is still having a little dyspnea on exertion. If she uses her CPAP she feels a little bit better. Her oxygen saturations have remained above 90% this whole time. I think she is reasonable to be discharged home if its okay with the medical team. She will follow-up with orthopedics in 2 weeks. Noemi Knox was seen and examined at bedside this morning. Overall she is doing okay. She will like to go home. She still has a little bit of dyspnea on exertion. Her saturations seem okay. She has no new complaints. Her shoulder is doing well.. Review of Systems All systems reviewed & are unremarkable except as noted in HPI & below. Physical Exam On physical examination of the right shoulder, the dressing is clean and dry. She is wearing her sling. She is neurovascularly intact.. Results & Data Results & Data Laboratory Results . Diagnostic Findings . PG Care Time/CCT Total # of Minutes Spent Total Time Spent with Patient: Total time spent is greater than 50% in coordination of care (as documented) at patient's floor/unit and/or counseling patient: Coding Level of Care Code 94147 Post Operative Follow-Up Diagnoses Status post reverse total replacement of right shoulder Z96.611
--- NOTE | 2022-03-08 12:52 | XRay Report ---
XR chest 2V PA/lateral HISTORY: f/u elevation R hemidiaphragm COMPARISON: Chest 02/25/2022. FINDINGS: There is again noted a right total shoulder arthroplasty with overlying skin angie consis tent with recent postoperative change. The elevated right hemidiaphragm seen in the prior study has r esolved in the interval. Right basilar linear densities have also improved. This favors resolving sub segmental atelectasis. Small linear scarlike densities again noted within the left midlung zone. No n ew focal lung consolidations. No evidence for pulmonary edema. Thoracic scoliosis again noted. IMPRESSION: 1. No evidence for an elevated right hemidiaphragm. 2. Right basilar linear densities have improved and favor resolving subsegmental atelectasis. 3. Postoperative changes again noted within the right shoulder. ACT 112: Negative or not required by law. Electronically signed by: Mayur Will M.D. 03/08/2022 12:51 PM
[2022-03-08] MEDS ORDERED: SODIUM CHLORIDE 0.9% 1000ML 250 ML IV ONE (13:46)
[2022-03-08] MEDS ORDERED: hydroCHLOROthiazide 25 MG TAB PO STA (13:55)
[2022-03-08 15:43] LABS: BUN Creatinine Ratio 20.4 (10-20); Calcium 8.3 mg/dl (8.5-10.1); Creatinine Clr Calc Pharmacy 63.6 ml/min; Est GFR (African American) 55.8 ml/min; Est GFR (Non-African American) 48.2 ml/min; Potassium 4.6 mmol/L (3.5-5.1)
[2022-03-08] MEDS: SENNA 8.6 MG TAB PO SCH (20:56)
[2022-03-08] MEDS: MAGNESIUM OXIDE 400 MG TAB PO SCH (20:57)
[2022-03-08] MEDS: oxyCODONE HCL IR 5 MG TAB (IMMEDIATE RELEASE) PO PRN (22:46)
[2022-03-09] MEDS: oxyCODONE HCL IR 5 MG TAB (IMMEDIATE RELEASE) PO PRN ×2 (03:20→09:39)
[2022-03-09] MEDS: ACETAMINOPHEN 500 MG TAB PO SCH (06:05)
--- NOTE | 2022-03-09 06:49 | Orthopedic Progress Note ---
Date of Service March 09, 2022 Assessment & Plan (1) Status post reverse total replacement of right shoulder: She is doing well with regards to her right shoulder. She is still experiencing some dyspnea on exertion but her saturations do not drop below 90%. This has been an ongoing issue. She has been seen by the hospitalist. They are trying to get set up with a primary care physician near her hometown. Her potassium levels have returned to normal. She can be discharged home later today. She will follow-up with orthopedics in 2 weeks as previously scheduled. Noemi Knox was seen and examined at bedside this morning. Overall she is doing well. She is not having much pain in the right shoulder. Her potassium seems to have returned to normal. She still has a little bit of dyspnea on exertion. She has no new complaints.. Review of Systems All systems reviewed & are unremarkable except as noted in HPI & below. Physical Exam On physical examination of the right shoulder, the dressing is clean and dry. She is wearing her sling as instructed.. Results & Data Results & Data Laboratory Results . Diagnostic Findings . PG Care Time/CCT Total # of Minutes Spent Total Time Spent with Patient: Total time spent is greater than 50% in coordination of care (as documented) at patient's floor/unit and/or counseling patient: Coding Level of Care Code 06270 Post Operative Follow-Up Diagnoses Status post reverse total replacement of right shoulder Z96.611
[2022-03-09] MEDS: PRAMIPEXOLE DIHYDROCHLO 0.25 MG TAB PO SCH (08:25)
[2022-03-09] MEDS: MULTIVITAMIN TAB PO SCH (08:25)
[2022-03-09] MEDS: ASPIRIN 81 MG ECTAB PO SCH (08:25)
[2022-03-09] MEDS: ATORVASTATIN 20 MG TAB PO SCH (08:25)
[2022-03-09] MEDS: FLUTICASONE/VILANTEROL 200/25MCG 14 PUFFS/INHALER INH SCH (08:26)
[2022-03-09] MEDS: DOCUSATE SODIUM 100 MG CAP PO SCH (08:26)
--- NOTE | 2022-03-09 10:03 | Hospitalist Progress Note ---
Date of Service March 09, 2022 Assessment & Plan (1) Dyspnea: Plan: Patient reportedly was dyspneic and hypoxemic in the room with ambulation. Likely due to elevated right hemidiaphragm which is new from old this may be due to her right shoulder nerve block. This would limit her functional capacity with exertion and likely may relate to her dyspnea, to be expected if this was the case that this would wear off and if she would improve with time a two-step is ordered for tomorrow morning Patient will continue her typical inhaled medications, Advair with as needed albuterol, without any other intervention recommended. Improved today on CXR and with symptoms, but patient can really only ambulate about 12 ft before becoming extremely short of breath. I do feel she would benefit from 24 more hours in the hospital to allow the shoulder block to fully wear off and hopefully have her symptoms of dyspnea on exertion resolve. 03/08 Repeat CXR no evidence for elevated R hemidiaphragm, R basilar linear densities improved and favor resolving subsegmental atelectasis Added incentive spirometer, encouraged use and use at d/c 03/09 --> on RA, reports improved, K improved last evening on lab check w/ 250cc NSS and losartan placed on hold - patient did report high K diet (encouraged avoidance, misty bananas, and discuss possible combo HCTZ at d/c if needed vs decreased losartan and adding HCTZ but would have close f/u labs and can discuss w/ PCP) Labs pending from this AM, BP stable 121/66 Ambulatory pulse ox w/ staff, lowest O2 sat 96%, did have elevation in HR to 116bpm, denied palpitations. Of note, not have any hx of having ECHO performed, however no significant murmur on exam (however possibly because of body habitus), but denied CP. Did recommend f/u with PCP for baseline ECHO but given stable/no murmur, ok for d/c as long as labs stable Can resume losartan this evening w/ strict low K diet and have close f/u PCP, which has been arranged with Sabine Solis in [place] office for 03/16 She is anxious to go home (2) Hypertension: Plan: Patient is maintained on losartan, she is typically on secondary risk prevention with aspirin which is held in the postoperative period. Held losartan last evening, 250cc NSS, K improved BP 121/66, losartan was on hold for this morning but pending labs can resume this evening along with low K diet. Discussed should discuss decreased dose/adding HCTZ to regimen to prevent hyperkalemia/renal damage in future of note, primary service did give her several doses of toradol in post op period (3) Morbid obesity: Plan: Her morbid obesity likely makes her respiratory effort increase she does wear her CPAP and is compliant I did reinforce the fact that she should wear that even when taking a nap in the hospital. She wore this and reports dose help Also w/ hx COPD, inhalers as previously ordered with advair and albuterol HFA Added incentive spirometer given suspected atelectasis -- on CXR suggestive of resolving such, rec'd to continue incentive spirometer at discharge (4) Status post reverse total replacement of right shoulder: Plan: POD #3 s/p reverse R shoulder Post-op management per primary service Plan ambulatory pulse ox w/o need for O2, lowest sat 96% labs from AM pending. BP stable off losartan but if stable labs can resume this evening given prior elevations. Recs to continue low potassium diet at discharge Rec'd to f/u PCP appt -- arranged for 03/16 to discuss possible combination HCTZ-losartan for BP control and also recs for baseline ECHO given cardiomegaly on CXR Admission and Anticipated Discharge Date Admission Date: March 05, 2022 Subjective Eval this morning, feeling better. Encouraged low potassium diet at d/c. Labs from AM pending but improved last evening. Also encouraged to stick to low salt diet and f/u new PCP for ECHO for baseline, but also encouraged to use her inhaler as needed. Lungs clear on exam, asked RN to check ambulatory pulse ox -- she dropped to lowest of 96%. Anxious to go home, ok once labs resulted. No fever/chills, chest pain, abdominal pain, nausea or other issues at this time. Pain to shoulder controlled with ordered medications. Review of Systems Review of Systems: All systems reviewed & are unremarkable except as noted in HPI & below Physical Exam Physical Exam: General: WD/WN obese female sitting up in recliner, NAD, HEENT; head normocephalic, atraumatic, +thick neck, no tracheal dilation Resp: CTAB, no w/c/r, 99% on RA CV: RRR, quiet heart sounds (possibly due to body habitus), no obvious murmur, rub or gallop, trace LE edema, calves nontender, pulses palpable GI: +obese, +BS, soft/NT : no kothari MSK/Neuro: R shoulder in sling, NVI, fingers mobile/pulses palpable Psych: AOX3, pleasant and cooperative Results & Data Results & Data ([facility]) Vital Signs (Past 12 Hours) Vital Signs Temp Pulse Pulse Pulse Resp Resp Resp 03/09/22 09:28 116 H 103 H 24 20 03/09/22 08:03 37.5 C 60 14 03/09/22 07:50 BP Pulse Ox Pulse Ox Pulse Ox O2 Del Method 03/09/22 09:28 96 99 Room Air 03/09/22 08:03 121/66 99 Room Air 03/09/22 07:50 Room Air Laboratory Results 03/09/22 03/08/22 03/08/22 Range/Units 09:37 15:03 11:52 Sodium Pending 139 (136-145) mmol/L Potassium Pending 4.6 5.3 H Chloride Pending 108 H (98-107) mmol/L Carbon Dioxide Pending 23 (21-32) mmol/L Anion Gap Pending 8 (3-11) BUN Pending 23 (6-23) mg/dl Creatinine Pending 1.13 D (0.6-1.2) mg/dl Est Cr Clr Drug Dosing Pending 63.6 ml/min Est GFR ( Amer) Pending 55.8 ml/min Est GFR (Non-Af Amer) Pending 48.2 ml/min BUN/Creatinine Ratio Pending 20.4 H (10-20) Glucose Pending 108 H (70-99(Fasting)) mg/dl Calcium Pending 8.3 L (8.5-10.1) mg/dl Magnesium (1.7-2.4) mg/dl 03/08/22 Range/Units 08:49 Sodium 138 (136-145) mmol/L Potassium TNP Chloride 107 (98-107) mmol/L Carbon Dioxide 25 (21-32) mmol/L Anion Gap 6 (3-11) BUN 26 H (6-23) mg/dl Creatinine 0.81 (0.6-1.2) mg/dl Est Cr Clr Drug Dosing 88.8 ml/min Est GFR ( Amer) 83.5 ml/min Est GFR (Non-Af Amer) 72.1 ml/min BUN/Creatinine Ratio 32.1 H (10-20) Glucose 85 (70-99(Fasting)) mg/dl Calcium 8.3 L (8.5-10.1) mg/dl Magnesium 2.7 H (1.7-2.4) mg/dl PG Care Time/CCT Total # of Minutes Spent Total Time Spent with Patient: Total time spent is greater than 50% in coordination of care (as documented) at patient's floor/unit and/or counseling patient: Coding Level of Care Code 86522 Subseq Hosp Care Lvl 2 Diagnoses Dyspnea R06.00 Hypertension I10 Morbid obesity E66.01 Status post reverse total replacement of right shoulder Z96.611
[2022-03-09 10:43] LABS: BUN Creatinine Ratio 26.2 (10-20); Calcium 8.8 mg/dl (8.5-10.1); Creatinine Clr Calc Pharmacy 85.6 ml/min; Est GFR (African American) 79.9 ml/min; Potassium 4.1 mmol/L (3.5-5.1)
== END 2022-03-09 13:17 | disposition home health service (06) ==
LOC: ASU 07:17 → 3W 12:15 → INTOOBSV 12:15